=== PATIENT | female | born 1995 ===

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

== ENCOUNTER 2018-02-25 18:53 | Emergency (ER) | payer BC, OTHER ==
[2018-02-25 19:02] VITALS: BP 128/95
[2018-02-25] MEDS ORDERED: methylPREDNISolone 125 MG* 2 ML VIAL IM ONE (19:26)
--- NOTE | 2018-02-25 19:39 | UC ---
Skin Complaint HPI - HPI Summary HPI Summary: patient works in [employer] and thinks she got into poison jessica. rash all over, itchy and blistered. has been using calamine lotion - History of Current Complaint Chief Complaint: UCSkin Time Seen by Provider: 02/25/18 19:23 Stated Complaint: RASH Hx Obtained From: Patient Hx Last Menstrual Period: 01/16/18 Onset/Duration: Sudden Onset, Lasting Days - 3 Skin Exposure Onset/Duration: Days Ago Timing: Constant Current Severity: Severe Pain Intensity: 9 Location: Generalized - 2 Character: Pruritus, Pain, Redness Aggravating Factor(s): Clothing, Humidity, Touch Alleviating Factor(s): Nothing Associated Signs & Symptoms: Positive: Rash Related History: Possible Reaction to: Environmental Exposure, Other: - Allergy/Home Medications Allergies/Adverse Reactions: Allergies Allergy/AdvReac Type Severity Reaction Status Date / Time No Known Allergies Allergy Verified 02/25/18 19:02 Review of Systems Constitutional: Negative Skin: Rash Eyes: Negative ENT: Negative Respiratory: Negative Cardiovascular: Negative Gastrointestinal: Negative Genitourinary: Negative Motor: Negative Neurovascular: Negative Musculoskeletal: Negative Neurological: Negative Psychological: Negative Is Patient Immunocompromised?: No All Other Systems Reviewed And Are Negative: Yes PMH/Surg Hx/FS Hx/Imm Hx Previously Healthy: Yes - Surgical History Surgical History: Yes Surgery Procedure, Year, and Place: [place]EN[place] [facility] [place]RI[place] - FX THAT DIDNT HEAL PROPERLY THEN SCAR TISSUE , 2011, [facility] [place] 2017 - Family History Known Family History: Positive: None Negative: Cardiac Disease, Hypertension - Social History Alcohol Use: Occasionally Substance Use Type: None Smoking Status (MU): Never Smoked Tobacco Have You Smoked in the Last Year: No Physical Exam Triage Information Reviewed: Yes Appearance: Well-Appearing, No Pain Distress, Well-Nourished Vital Signs: Initial Vital Signs Temp 98.6 F 02/25/18 18:58 Pulse 75 02/25/18 18:58 Resp 20 02/25/18 18:58 BP 128/95 02/25/18 18:58 Pulse Ox 100 02/25/18 18:58 Vital Signs Reviewed: Yes Eye Exam: Normal ENT Exam: Normal Dental Exam: Normal Neck exam: Normal Respiratory Exam: Normal Cardiovascular Exam: Normal Cardiovascular: Positive: RRR, No Murmur, Pulses Normal Abdominal Exam: Normal Abdomen Description: Positive: Nontender, No Organomegaly, Soft Bowel Sounds: Positive: Present Musculoskeletal Exam: Normal Neurological Exam: Normal Psychological Exam: Normal Skin: Positive: rashes - areas of poision ejssica on legs, trunk neck arms and face , blistered and open Course/Dx - Course Course Of Treatment: HX OBTAINED,exam performed ,meds reviewed, Solumedrol givena nd meds prescribed. - Differential Diagnoses - Skin Complaint Differential Diagnoses: Cellulitis, Contact Dermatitis, Drug Rash, Poison Jessica, Poison Mcd[place] - Diagnoses Provider Diagnoses: poison jessica Discharge - Sign-Out/Discharge Documenting (check all that apply): Patient Departure - Discharge Plan Condition: Stable Disposition: HOME Prescriptions: predniSONE [Prednisone 20 MG TAB] 20 mg PO DAILY #19 tablet Triamcinolone 0.1% OINT(NF) [Kenalog 0.1% OINT(NF)] 1 applic TOPICAL BID #454 jar Patient Education Materials: Poison Jessica (ED) Referrals: No Primary Care Phys,NOPCP [Primary Care Provider] - Additional Instructions: use the prednisone as prescribed. use the cream twice a dday, lukewarm oatmeal or baking soda baths are hlepful for itching. keep areas covered. if you develop any fever, or redness/warmth of the skin, follow up for further treatment. - Billing Disposition and Condition Condition: STABLE Disposition: Home
== END 2018-02-25 20:00 | disposition home or self-care (01) ==
LOC: UCEAST 18:53
DX: L23.7 Allergic contact dermatitis due to plants, except food (principal)
CPT/HCPCS: 96372; 99212; G0463; J2930

== ENCOUNTER 2019-02-24 14:43 | Emergency (ER) | payer BC, OTHER ==
[2019-02-24 15:37] VITALS: BP 109/74
--- NOTE | 2019-02-24 17:58 | UC ---
Skin Complaint HPI - HPI Summary HPI Summary: 23 y/o female presents to the - History of Current Complaint Chief Complaint: UCSkin Time Seen by Provider: 02/24/19 17:22 Stated Complaint: RASH Hx Obtained From: Patient Hx Last Menstrual Period: 01/16/18 Pain Intensity: 5 - Allergy/Home Medications Allergies/Adverse Reactions: Allergies Allergy/AdvReac Type Severity Reaction Status Date / Time No Known Allergies Allergy Verified 02/24/19 15:37 PMH/Surg Hx/FS Hx/Imm Hx - Surgical History Surgical History: Yes Surgery Procedure, Year, and Place[place] [facility] [place] - FX THAT DIDNT HEAL PROPERLY THEN [place] , [place] [facility] [place] - Family History Known Family History: Positive: None Negative: Cardiac Disease, Hypertension - Social History Alcohol Use: Rare Substance Use Type: None Smoking Status (MU): Never Smoked Tobacco Have You Smoked in the Last Year: No Physical Exam Vital Signs: Initial Vital Signs Temp 98.4 F 02/24/19 15:33 Pulse 72 02/24/19 15:33 Resp 16 02/24/19 15:33 BP 109/74 02/24/19 15:33 Pulse Ox 99 02/24/19 15:33 Course/Dx - Differential Diagnoses - Skin Complaint Differential Diagnoses: Abscess, Contact Dermatitis, Local Allergic Reaction, Poison Jessica, Poison [place], Urticaria - Diagnoses Provider Diagnosis: Poison jessica dermatitis Discharge - Sign-Out/Discharge Documenting (check all that apply): Patient Departure - d/C home All imaging exams completed and their final reports reviewed: No Studies - Discharge Plan Condition: Stable Disposition: HOME Prescriptions: diPHENhydraMINE PO* [Benadryl PO 25 MG TAB*] 25 mg PO TID PRN #30 tab PRN Reason: pruritus Triamcinolone 0.1% OINT(NF) [Kenalog 0.1% OINT(NF)] 1 applic .SEE ORDER BID #1 applic Patient Education Materials: Poison Jessica (ED) [place] [facility] [place]] - 3 Days Nevaeh Cabral [Medical Doctor] - If Needed Additional Instructions: 1-Please apply Triamcinolone topical cream medication as directed over affected areas . Avoid sun exposure 2-Take Benadryl PO as directed to alleviate itchiness. 3-If symptoms do not improve or worsen please f/u with your PCP or [facility] Dr Cabral for further evaluation and treatment. - Billing Disposition and Condition Condition: STABLE Disposition: Home
== END 2019-02-24 18:10 | disposition home or self-care (01) ==
LOC: UCEAST 14:43
DX: L23.7 Allergic contact dermatitis due to plants, except food (principal)
CPT/HCPCS: 99212; G0463